=== PATIENT | male | born 1975 | race African-American/Black ===

== ENCOUNTER 2019-07-11 18:01 | Emergency (ER) | payer MEDICAID ==
[~2019-07-11] VITALS: Ht 182.9 cm; Wt 127.0 kg
[2019-07-11] MEDS ORDERED: ONDANSETRON HCL 4MG/2ML INJ IV STA (18:50)
[2019-07-11] MEDS ORDERED: MECLIZINE 25MG TABLET PO ONE (19:00)
[2019-07-11] MEDS ORDERED: HYDRALAZINE 20MG/ML VIAL IV ONE (19:00)
[2019-07-11 19:58] LABS: BASOPHILS % 0.5 % (0.0-2.0); HEMATOCRIT. 49.2 % (42.0-52.0); HEMOGLOBIN. 16.1 g/dL (14.0-18.0); LYMPHOCYTES % 10.2 % (20.0-50.0); MEAN CORPUSCULAR HEMOGLOBIN 27.6 pg (28.0-32.0); MEAN CORPUSCULAR VOLUME 84.3 fL (80.0-94.0); MEAN PLATELET VOLUME 9.3 fl (7.4-10.4); MONOCYTES % 2.9 % (2.0-8.0); NEUTROPHILS % 86.4 % (40.0-76.0); PLATELET 237 x1000/uL (130-400); RED BLOOD CELL COUNT 5.84 mill/uL (4.7-6.1); RED CELL DISTRIBUTION WIDTH 14.9 % (11.6-14.6)
[2019-07-11 19:59] LABS: CLARITY URINE CLEAR (CLEAR); COLOR URINE YELLOW (YELLOW); KETONES URINE 1+ (NEGATIVE); LEUKOCYTE ESTERASE URINE NEGATIVE (NEGATIVE); NITRITE URINE NEGATIVE (NEGATIVE); OCCULT BLOOD URINE NEGATIVE (NEGATIVE); PH URINE 8.5 (4.5-8.0); PROTEIN URINE NEGATIVE (NEGATIVE); SPECIFIC GRAVITY URINE 1.014 (1.005-1.030); UROBILINOGEN URINE 0.2 E.U./dL (0.2-1.0)
[2019-07-11 20:04] LABS: CHLORIDE 104 mEq/L (98-107)
[2019-07-11 21:27] VITALS: BP 180/90
== END 2019-07-11 21:55 | disposition home or self-care (01) ==
LOC: ER 18:01
DX: R42 Dizziness and giddiness (principal); R11.0 Nausea; I10 Essential (primary) hypertension
CPT/HCPCS: 36415; 70450; 71045; 80053; 81003; 83880; 84484; 85025; 93005; 96374; 99284; J2405; J8597

== ENCOUNTER 2022-06-02 20:10 | Inpatient (IN) | payer MEDICAID ==
[~2022-06-02] VITALS: Ht 182.9 cm; Wt 185.1 kg
[2022-06-03] MEDS ORDERED: FUROSEMIDE 40MG/4ML VIAL IV ONE (04:00)
[2022-06-03 04:47] LABS: BASOPHILS % 1.2 % (0.0-2.0); EOSINOPHILS % 0.4 % (0.0-5.0); HEMATOCRIT. 50.2 % (42.0-52.0); HEMOGLOBIN. 15.2 g/dL (14.0-18.0); LYMPHOCYTES % 23.6 % (20.0-50.0); MEAN CORPUSCULAR HEMOGLOBIN 23.3 pg (28.0-32.0); MEAN PLATELET VOLUME 8.9 fl (7.4-10.4); NEUTROPHILS % 64.8 % (40.0-76.0); PLATELET 265 x1000/uL (130-400); RED BLOOD CELL COUNT 6.53 mill/uL (4.7-6.1); RED CELL DISTRIBUTION WIDTH 19.1 % (11.6-14.6)
[2022-06-03 04:48] LABS: CHLORIDE 101 mEq/L (98-107)
[2022-06-03] MEDS ORDERED: FUROSEMIDE 40MG/4ML VIAL IV NR (06:15)
[2022-06-03] MEDS ORDERED: FUROSEMIDE 40MG/4ML VIAL IVP ONE (06:45)
[2022-06-03] MEDS ORDERED: ACETAMINOPHEN 325MG TABLET PO PRN ×2 (09:45)
[2022-06-03] MEDS ORDERED: ONDANSETRON HCL 4MG/2ML INJ IV PRN (09:45)
[2022-06-03] MEDS ORDERED: KETOROLAC 15MG/ML VIAL IV PRN (09:45)
[2022-06-03] MEDS ORDERED: DOCUSATE SODIUM 100MG CAPSULE PO PRN (09:45)
[2022-06-03] MEDS ORDERED: IPRATROPIUM/ALBUTEROL 0.5-3(2.5)MG/3ML NEB NEB PRN (09:45)
[2022-06-03] MEDS ORDERED: CLONIDINE 0.1MG TABLET PO PRN (09:45)
[2022-06-03] MEDS ORDERED: GUAIFENESIN 200MG/10ML SUGAR FREE UDC PO PRN (09:45)
[2022-06-03] MEDS ORDERED: NA PHOS,M-B/NA PHOS,DI-BA ENEMA 118ML PR PRN (09:45)
[2022-06-03] MEDS ORDERED: NITROGLYCERIN 0.4MG TABLET SL SL PRN (09:45)
[2022-06-03] MEDS ORDERED: FUROSEMIDE 40MG/4ML VIAL IVP NR (09:45)
[2022-06-03] MEDS ORDERED: MAGNESIUM/ALUMINUM HYDROXIDE/SIMETHICONE 30ML UDC PO PRN (09:45)
[2022-06-03] MEDS ORDERED: ASPIRIN 325MG EC TABLET PO SCH (10:00)
[2022-06-03 10:53] VITALS: BP 149/85
[2022-06-03 11:00] VITALS: BP 149/85
[2022-06-03] MEDS: FUROSEMIDE 40MG/4ML VIAL IVP SCH ×2 (11:08→18:10)
[2022-06-03] MEDS: FAMOTIDINE 20MG TABLET PO SCH ×2 (11:09→21:00)
[2022-06-03] MEDS: ENOXAPARIN 40MG/0.4ML SYR SUBCUT SCH ×2 (11:10→21:02)
[2022-06-03] MEDS: SPIRONOLACTONE 25MG TABLET PO SCH ×2 (11:10→21:01)
[2022-06-03 11:25] LABS: ETHANOL BLOOD < 10 mg/dL; HDL CHOLESTEROL 27 mg/dL (40-59); LDL CHOLESTEROL 55 mg/dL (5-100); TOTAL IRON BINDING CAPACITY 458 ug/dL (250-450)
[2022-06-03 12:07] VITALS: BP 139/85
[2022-06-03] MEDS ORDERED: AMLO5TAB88 PO (12:18)
[2022-06-03] MEDS ORDERED: LISI-186 PO (12:18)
[2022-06-03] MEDS ORDERED: EMPA25TA PO (12:18)
[2022-06-03] MEDS ORDERED: METF-414 PO (12:18)
[2022-06-03] MEDS ORDERED: ATOR-2 PO (12:18)
[2022-06-03] MEDS ORDERED: ALBU6.7H3 INH (12:18)
[2022-06-03 16:00] VITALS: BP 156/79
[2022-06-03 18:06] LABS: CREATINE KINASE MB FRACTION 1.6 ng/mL (0.5-3.6)
[2022-06-03 18:25] LABS: VITAMIN B12 SERUM 722 pg/mL (211-911)
[2022-06-03 20:00] VITALS: BP 163/99
[2022-06-03] MEDS ORDERED: ZOLPIDEM TARTRATE 5MG TABLET PO PRN (21:00)
[2022-06-04] VITALS: BP 153/108
[2022-06-04 00:42] LABS: *AMPHETAMINES SCREEN URINE NEGATIVE (NEGATIVE); *BARBITURATES SCREEN URINE NEGATIVE (NEGATIVE); *BENZODIAZEPINES SCREEN URINE NEGATIVE (NEGATIVE); *COCAINE SCREEN URINE NEGATIVE (NEGATIVE); CANNABINOID URINE SCREEN NEGATIVE (NEGATIVE); METHADONE URINE SCREEN NEGATIVE (NEGATIVE); OPIATES URINE SCREEN NEGATIVE (NEGATIVE); PHENCYCLIDINE URINE SCREEN NEGATIVE (NEGATIVE)
[2022-06-04 01:17] LABS: CLARITY URINE CLEAR (CLEAR); COLOR URINE YELLOW (YELLOW); PROTEIN URINE NEGATIVE (NEGATIVE)
[2022-06-04 01:18] LABS: KETONES URINE NEGATIVE (NEGATIVE); LEUKOCYTE ESTERASE URINE NEGATIVE (NEGATIVE); NITRITE URINE NEGATIVE (NEGATIVE); OCCULT BLOOD URINE TRACE (NEGATIVE); UROBILINOGEN URINE 0.2 E.U./dL (0.2-1.0)
[2022-06-04] MEDS: METOPROLOL SUCCINATE 50MG ER TABLET PO SCH ×3 (01:40→21:00)
[2022-06-04 03:40] LABS: CREATINE KINASE MB FRACTION 1.1 ng/mL (0.5-3.6)
[2022-06-04 04:00] VITALS: BP 111/76
[2022-06-04] MEDS: FUROSEMIDE 40MG/4ML VIAL IVP SCH ×2 (06:14→17:07)
[2022-06-04 08:00] VITALS: BP 132/90
[2022-06-04] MEDS: FAMOTIDINE 20MG TABLET PO SCH ×2 (09:50→21:30)
[2022-06-04] MEDS: ENOXAPARIN 40MG/0.4ML SYR SUBCUT SCH ×2 (09:50→21:30)
[2022-06-04] MEDS: SPIRONOLACTONE 25MG TABLET PO SCH ×2 (09:50→21:32)
[2022-06-04] MEDS: ASPIRIN 81MG EC TABLET PO SCH (09:51)
[2022-06-04 10:41] LABS: BASOPHILS % 0.5 % (0.0-2.0); EOSINOPHILS % 0.1 % (0.0-5.0); HEMATOCRIT. 55.7 % (42.0-52.0); HEMOGLOBIN. 16.3 g/dL (14.0-18.0); LYMPHOCYTES % 11.5 % (20.0-50.0); MEAN CORPUSCULAR VOLUME 78.6 fL (80.0-94.0); MEAN PLATELET VOLUME 9.1 fl (7.4-10.4); MONOCYTES % 10.2 % (2.0-8.0); NEUTROPHILS % 77.7 % (40.0-76.0); PLATELET 249 x1000/uL (130-400); RED BLOOD CELL COUNT 7.08 mill/uL (4.7-6.1); RED CELL DISTRIBUTION WIDTH 19.3 % (11.6-14.6)
[2022-06-04 11:09] LABS: PHOSPHORUS 4.7 mg/dL (2.5-4.9)
[2022-06-04] MEDS ORDERED: TAMS-11 PO (11:11)
[2022-06-04] MEDS ORDERED: FURO40TA5 PO (11:11)
[2022-06-04] MEDS ORDERED: GUAI-741 MT (11:11)
[2022-06-04] MEDS ORDERED: ASPI-1497 PO (11:11)
[2022-06-04] MEDS ORDERED: CARV6.2548 PO (11:11)
[2022-06-04 12:00] VITALS: BP 125/82
[2022-06-04 16:00] VITALS: BP 114/18
[2022-06-04 20:00] VITALS: BP 96/54
[2022-06-04] MEDS: ATORVASTATIN CALCIUM 40MG TABLET PO SCH (21:30)
[2022-06-05] VITALS: BP 147/78
[2022-06-05 04:00] VITALS: BP 115/79
[2022-06-05] MEDS: FUROSEMIDE 40MG/4ML VIAL IVP SCH ×2 (06:23→16:25)
[2022-06-05 08:04] VITALS: BP 113/69
[2022-06-05] MEDS: AMLODIPINE 5MG TABLET PO SCH (08:45)
[2022-06-05] MEDS: METOPROLOL SUCCINATE 50MG ER TABLET PO SCH ×2 (08:45→20:21)
[2022-06-05] MEDS: ASPIRIN 81MG EC TABLET PO SCH (08:45)
[2022-06-05] MEDS: SPIRONOLACTONE 25MG TABLET PO SCH ×2 (08:45→20:20)
[2022-06-05] MEDS: FAMOTIDINE 20MG TABLET PO SCH ×2 (08:45→20:22)
[2022-06-05] MEDS: ENOXAPARIN 40MG/0.4ML SYR SUBCUT SCH ×2 (08:46→20:20)
[2022-06-05 09:11] LABS: CHLORIDE 95 mEq/L (98-107)
[2022-06-05 12:00] VITALS: BP 124/85
[2022-06-05 15:00] LABS: BG BASE EXCESS 15.1 mmol/L (-2.0-2.0); BG CARBOXYHEMOGLOBIN 2.5 % (0.5-1.5); BG DEOXYHEMOGLOBIN 7.7 % (0.0-5.0); BG FRACTION INSPIRED OXYGEN 36; BG HCO3 ACT 46.6 mmol/L (22.0-26.0); BG METHEMOGLOBIN 0.3 % (0.0-1.5); BG OXYGEN SATURATION 92.1 % (92.0-98.5); BG OXYHEMOGLOBIN 89.5 % (94.0-97.0); BG PCO2 94.6 mmHg (35.0-45.0); BG PO2 68.2 mmHg (75.0-100.0); BG SAMPLE SITE RIGHT BRACHIAL; BG TOTAL HEMOGLOBIN 15.1 g/dL (12.0-18.0); BG VENT MODE NASAL CANNULA
[2022-06-05 16:00] VITALS: BP 128/86
[2022-06-05 19:05] LABS: CLARITY URINE CLEAR (CLEAR); COLOR URINE YELLOW (YELLOW); KETONES URINE NEGATIVE (NEGATIVE); LEUKOCYTE ESTERASE URINE TRACE (NEGATIVE); NITRITE URINE NEGATIVE (NEGATIVE); OCCULT BLOOD URINE 3+ (NEGATIVE); PROTEIN URINE NEGATIVE (NEGATIVE); SPECIFIC GRAVITY URINE 1.015 (1.005-1.030); UROBILINOGEN URINE 0.2 E.U./dL (0.2-1.0)
[2022-06-05 20:00] VITALS: BP 122/73
[2022-06-05] MEDS: ATORVASTATIN CALCIUM 40MG TABLET PO SCH (20:22)
[2022-06-06] VITALS: BP 112/75
[2022-06-06 04:00] VITALS: BP 106/77
[2022-06-06] MEDS: FUROSEMIDE 40MG/4ML VIAL IVP SCH ×2 (06:19→17:22)
[2022-06-06 08:00] VITALS: BP 107/63
[2022-06-06] MEDS: AMLODIPINE 5MG TABLET PO SCH (08:37)
[2022-06-06] MEDS: SPIRONOLACTONE 25MG TABLET PO SCH ×2 (09:36→21:09)
[2022-06-06] MEDS: ENOXAPARIN 40MG/0.4ML SYR SUBCUT SCH ×2 (09:37→21:09)
[2022-06-06] MEDS: METOPROLOL SUCCINATE 50MG ER TABLET PO SCH ×2 (09:37→21:10)
[2022-06-06] MEDS: ASPIRIN 81MG EC TABLET PO SCH (09:37)
[2022-06-06] MEDS: FAMOTIDINE 20MG TABLET PO SCH ×2 (09:37→21:09)
[2022-06-06 12:00] VITALS: BP 115/74
[2022-06-06 16:00] VITALS: BP 157/84
[2022-06-06 20:00] VITALS: BP 120/71
[2022-06-06] MEDS: ATORVASTATIN CALCIUM 40MG TABLET PO SCH (21:09)
[2022-06-07] VITALS: BP 127/81
[2022-06-07 04:00] VITALS: BP 123/73
[2022-06-07] MEDS: FUROSEMIDE 40MG/4ML VIAL IVP SCH ×2 (06:35→17:50)
[2022-06-07 08:00] VITALS: BP 116/74
[2022-06-07] MEDS: ASPIRIN 81MG EC TABLET PO SCH (08:54)
[2022-06-07] MEDS: ENOXAPARIN 40MG/0.4ML SYR SUBCUT SCH ×2 (08:54→21:40)
[2022-06-07] MEDS: FAMOTIDINE 20MG TABLET PO SCH ×2 (08:54→21:39)
[2022-06-07] MEDS: AMLODIPINE 5MG TABLET PO SCH (08:54)
[2022-06-07] MEDS: METOPROLOL SUCCINATE 50MG ER TABLET PO SCH ×2 (08:54→21:39)
[2022-06-07] MEDS: SPIRONOLACTONE 25MG TABLET PO SCH (08:56)
[2022-06-07 12:00] VITALS: BP 108/80
[2022-06-07 13:48] LABS: CHLORIDE 91 mEq/L (98-107)
[2022-06-07 15:40] LABS: BG BASE EXCESS 18.3 mmol/L (-2.0-2.0); BG CARBOXYHEMOGLOBIN 2.4 % (0.5-1.5); BG DEOXYHEMOGLOBIN 11.4 % (0.0-5.0); BG FRACTION INSPIRED OXYGEN 32; BG HCO3 ACT 49.3 mmol/L (22.0-26.0); BG METHEMOGLOBIN 0.3 % (0.0-1.5); BG OXYGEN SATURATION 88.3 % (92.0-98.5); BG OXYHEMOGLOBIN 85.9 % (94.0-97.0); BG PCO2 90.3 mmHg (35.0-45.0); BG PH 7.355 (7.350-7.450); BG PO2 56.9 mmHg (75.0-100.0); BG SAMPLE SITE RIGHT BRACHIAL; BG TOTAL HEMOGLOBIN 15.1 g/dL (12.0-18.0); BG VENT MODE NASAL CANNULA
[2022-06-07 16:00] VITALS: BP 127/80
[2022-06-07 20:00] VITALS: BP 126/79
[2022-06-07] MEDS: ATORVASTATIN CALCIUM 40MG TABLET PO SCH (21:39)
[2022-06-08] VITALS: BP 136/89
[2022-06-08 04:00] VITALS: BP 141/93
[2022-06-08] MEDS: FUROSEMIDE 40MG/4ML VIAL IVP SCH ×2 (06:12→17:21)
[2022-06-08 06:54] LABS: HEMATOCRIT 48.2 % (42.0-52.0); HEMOGLOBIN 14.4 g/dL (14.0-18.0); MEAN CORPUSCULAR HEMOGLOBIN 23.2 pg (28.0-32.0); MEAN CORPUSCULAR VOLUME 77.6 fL (80.0-94.0); PLATELET 168 x1000/uL (130-400); RED BLOOD CELL COUNT 6.21 mill/uL (4.7-6.1); RED CELL DISTRIBUTION WIDTH 18.8 % (11.6-14.6)
[2022-06-08 08:00] VITALS: BP 152/92
[2022-06-08 08:34] LABS: CHLORIDE 90 mEq/L (98-107)
[2022-06-08 08:41] LABS: PHOSPHORUS 3.5 mg/dL (2.5-4.9)
[2022-06-08] MEDS: AMLODIPINE 5MG TABLET PO SCH (09:42)
[2022-06-08] MEDS: FAMOTIDINE 20MG TABLET PO SCH ×2 (09:42→21:27)
[2022-06-08] MEDS: SPIRONOLACTONE 25MG TABLET PO SCH (09:42)
[2022-06-08] MEDS: ASPIRIN 81MG EC TABLET PO SCH (09:42)
[2022-06-08] MEDS: METOPROLOL SUCCINATE 50MG ER TABLET PO SCH ×2 (09:43→21:28)
[2022-06-08] MEDS: ENOXAPARIN 40MG/0.4ML SYR SUBCUT SCH ×2 (09:43→21:27)
[2022-06-08 12:00] VITALS: BP 101/62
[2022-06-08 16:00] VITALS: BP 124/72
[2022-06-08] MEDS ORDERED: MAGNESIUM 2 G PREMIX 50 ML IV NR (18:00)
[2022-06-08] MEDS ORDERED: ACETAZOLAMIDE 500MG ER CAPSULE PO NR ×2 (18:30→20:30)
[2022-06-08 20:00] VITALS: BP 111/61
[2022-06-08] MEDS: ATORVASTATIN CALCIUM 40MG TABLET PO SCH (21:27)
[2022-06-09] VITALS: BP 123/80
[2022-06-09 04:00] VITALS: BP 133/79
[2022-06-09] MEDS: FUROSEMIDE 40MG/4ML VIAL IVP SCH ×2 (06:49→16:25)
[2022-06-09 07:24] LABS: CHLORIDE 91 mEq/L (98-107)
[2022-06-09 07:36] LABS: HEMATOCRIT 51.5 % (42.0-52.0); HEMOGLOBIN 15.4 g/dL (14.0-18.0); MEAN CORPUSCULAR HEMOGLOBIN 23.4 pg (28.0-32.0); MEAN CORPUSCULAR VOLUME 78.3 fL (80.0-94.0); PLATELET 163 x1000/uL (130-400); RED BLOOD CELL COUNT 6.58 mill/uL (4.7-6.1); RED CELL DISTRIBUTION WIDTH 19.2 % (11.6-14.6)
[2022-06-09 07:37] LABS: PHOSPHORUS 3.9 mg/dL (2.5-4.9)
[2022-06-09 08:00] VITALS: BP 155/106
[2022-06-09 09:16] LABS: BG BASE EXCESS 17.6 mmol/L (-2.0-2.0); BG CARBOXYHEMOGLOBIN 2.4 % (0.5-1.5); BG DEOXYHEMOGLOBIN 6.3 % (0.0-5.0); BG FRACTION INSPIRED OXYGEN 36; BG HCO3 ACT 49.9 mmol/L (22.0-26.0); BG METHEMOGLOBIN 0.3 % (0.0-1.5); BG OXYGEN SATURATION 93.5 % (92.0-98.5); BG PCO2 97.5 mmHg (35.0-45.0); BG PH 7.327 (7.350-7.450); BG PO2 70.8 mmHg (75.0-100.0); BG SAMPLE SITE RIGHT RADIAL; BG TOTAL HEMOGLOBIN 16.3 g/dL (12.0-18.0); BG VENT MODE NASAL CANNULA
[2022-06-09] MEDS: ASPIRIN 81MG EC TABLET PO SCH (09:48)
[2022-06-09] MEDS: SPIRONOLACTONE 25MG TABLET PO SCH (09:48)
[2022-06-09] MEDS: FAMOTIDINE 20MG TABLET PO SCH ×2 (09:48→21:55)
[2022-06-09] MEDS: ENOXAPARIN 40MG/0.4ML SYR SUBCUT SCH ×2 (09:48→21:58)
[2022-06-09] MEDS: AMLODIPINE 5MG TABLET PO SCH (09:49)
[2022-06-09] MEDS: METOPROLOL SUCCINATE 50MG ER TABLET PO SCH ×2 (09:49→21:56)
[2022-06-09 12:00] VITALS: BP 111/67
[2022-06-09 16:00] VITALS: BP 139/91
[2022-06-09 20:00] VITALS: BP 110/72
[2022-06-09] MEDS: ATORVASTATIN CALCIUM 40MG TABLET PO SCH (21:56)
[2022-06-10] VITALS: BP 120/75
[2022-06-10 04:00] VITALS: BP 115/72
[2022-06-10 07:15] LABS: HEMATOCRIT 53.8 % (42.0-52.0); HEMOGLOBIN 15.8 g/dL (14.0-18.0); MEAN CORPUSCULAR HEMOGLOBIN 23.4 pg (28.0-32.0); MEAN CORPUSCULAR VOLUME 79.3 fL (80.0-94.0); PLATELET 133 x1000/uL (130-400); RED BLOOD CELL COUNT 6.78 mill/uL (4.7-6.1); RED CELL DISTRIBUTION WIDTH 19.5 % (11.6-14.6)
[2022-06-10 08:29] VITALS: BP 154/75
[2022-06-10 09:00] LABS: CHLORIDE 95 mEq/L (98-107)
[2022-06-10] MEDS: ENOXAPARIN 40MG/0.4ML SYR SUBCUT SCH ×2 (09:15→21:44)
[2022-06-10] MEDS: FAMOTIDINE 20MG TABLET PO SCH ×2 (09:15→21:45)
[2022-06-10] MEDS: FUROSEMIDE 40MG/4ML VIAL IVP SCH ×2 (09:16→19:12)
[2022-06-10] MEDS: AMLODIPINE 5MG TABLET PO SCH (09:16)
[2022-06-10] MEDS: METOPROLOL SUCCINATE 50MG ER TABLET PO SCH ×2 (09:16→21:45)
[2022-06-10] MEDS: ASPIRIN 81MG EC TABLET PO SCH (09:16)
[2022-06-10] MEDS: SPIRONOLACTONE 25MG TABLET PO SCH (09:16)
[2022-06-10 12:00] VITALS: BP 102/55
[2022-06-10 16:00] VITALS: BP 115/67
[2022-06-10 20:00] VITALS: BP 12/72
[2022-06-10] MEDS ORDERED: FURO40TA5 PO (20:35)
[2022-06-10] MEDS ORDERED: LISI-186 PO (20:35)
[2022-06-10] MEDS ORDERED: METF-414 PO (20:36)
[2022-06-10] MEDS ORDERED: COR6 PO (20:37)
[2022-06-10] MEDS ORDERED: TAMS-11 PO (20:37)
[2022-06-10] MEDS ORDERED: EMPA25TA PO (20:38)
[2022-06-10] MEDS ORDERED: ATOR-2 PO (20:39)
[2022-06-10] MEDS ORDERED: ASPI-1497 PO (20:39)
[2022-06-10] MEDS ORDERED: PRIL20 PO (20:41)
[2022-06-10] MEDS: ATORVASTATIN CALCIUM 40MG TABLET PO SCH (21:45)
[2022-06-11] VITALS (8 sets, daily range): BP systolic 108–132; BP diastolic 60–87
[2022-06-11] MEDS: METOPROLOL SUCCINATE 50MG ER TABLET PO SCH (09:00)
[2022-06-11] MEDS: AMLODIPINE 5MG TABLET PO SCH (09:00)
[2022-06-11] MEDS: ASPIRIN 81MG EC TABLET PO SCH (09:08)
[2022-06-11] MEDS: FUROSEMIDE 40MG/4ML VIAL IVP SCH ×2 (09:08→18:10)
[2022-06-11] MEDS: ENOXAPARIN 40MG/0.4ML SYR SUBCUT SCH (09:08)
[2022-06-11] MEDS: FAMOTIDINE 20MG TABLET PO SCH (09:09)
[2022-06-11 11:27] LABS: HEMATOCRIT 53.9 % (42.0-52.0); HEMOGLOBIN 16.4 g/dL (14.0-18.0); MEAN CORPUSCULAR HEMOGLOBIN 23.8 pg (28.0-32.0); MEAN CORPUSCULAR VOLUME 78.4 fL (80.0-94.0); PLATELET 109 x1000/uL (130-400); RED BLOOD CELL COUNT 6.88 mill/uL (4.7-6.1); RED CELL DISTRIBUTION WIDTH 19.2 % (11.6-14.6)
[2022-06-11] MEDS: SPIRONOLACTONE 25MG TABLET PO SCH (11:29)
[2022-06-11 12:27] LABS: CHLORIDE 94 mEq/L (98-107)
== END 2022-06-11 20:05 | DRG 194 ==
LOC: ER 20:10 → 6WST 06-03 07:36 → ENRESERV 06-03 08:29
PROVIDERS: ADMIT Internal Medicine; ATTEND Internal Medicine
PROC: 5A09357 Assistance with Respiratory Ventilation, Less than 24 Consecutive Hours, Continuous Positive Airway Pressure (ICD-10-PCS; principal; 2022-06-06)
DX: I11.0 Hypertensive heart disease with heart failure (principal); N17.0 Acute kidney failure with tubular necrosis; G93.40 Encephalopathy, unspecified; J96.02 Acute respiratory failure with hypercapnia; J96.01 Acute respiratory failure with hypoxia; D69.6 Thrombocytopenia, unspecified; E11.52 Type 2 diabetes mellitus with diabetic peripheral angiopathy with gangrene; I96 Gangrene, not elsewhere classified; R18.8 Other ascites; I21.A1 Myocardial infarction type 2; I50.33 Acute on chronic diastolic (congestive) heart failure; I27.20 Pulmonary hypertension, unspecified; E66.2 Morbid (severe) obesity with alveolar hypoventilation; E87.1 Hypo-osmolality and hyponatremia; E87.4 Mixed disorder of acid-base balance; G82.20 Paraplegia, unspecified; E11.65 Type 2 diabetes mellitus with hyperglycemia; E78.00 Pure hypercholesterolemia, unspecified; R26.9 Unspecified abnormalities of gait and mobility; E11.42 Type 2 diabetes mellitus with diabetic polyneuropathy; D64.9 Anemia, unspecified; I07.1 Rheumatic tricuspid insufficiency; J44.9 Chronic obstructive pulmonary disease, unspecified; K43.9 Ventral hernia without obstruction or gangrene; M48.061 Spinal stenosis, lumbar region without neurogenic claudication; Z60.2 Problems related to living alone; M51.36 Other intervertebral disc degeneration, lumbar region; M51.37 Other intervertebral disc degeneration, lumbosacral region; Z68.43 Body mass index [BMI] 50.0-59.9, adult; Z79.82 Long term (current) use of aspirin; Z79.84 Long term (current) use of oral hypoglycemic drugs; Z79.899 Other long term (current) drug therapy; Z86.16 Personal history of COVID-19; Z91.14 Patient's other noncompliance with medication regimen; Z82.49 Family history of ischemic heart disease and other diseases of the circulatory system
CPT/HCPCS: 36415; 36600; 71045; 72131; 74176; 80048; 80053; 80061; 80305; 80320; 81003; 82375; 82550; 82553; 82607; 82746; 82805; 82962; 83036; 83540; 83550; 83605; 83735; 83880; 84100; 84439; 84443; 84484; 85025; 85027; 93005; 93306; 93970; 94660; 97116; 97162; 97166; 97535; 99285; A6261; J1650; J1940; J3475; A4315; G0480

== ENCOUNTER 2022-06-11 20:10 | Inpatient (IN) | payer MEDICAID ==
[~2022-06-11] VITALS: Ht 180.3 cm; Wt 185.1 kg
[~2022-06-11 20:10] MED LIST: ALBU6.7H3 INH; ASPI-1497 PO; ATOR-2 PO; COR6 PO; EMPA25TA PO; FURO40TA5 PO; GUAI-741 MT; LISI-186 PO; METF-414 PO; PRIL20 PO; TAMS-11 PO
[2022-06-11 20:30] VITALS: BP 133/78
[2022-06-11] MEDS ORDERED: DOCUSATE SODIUM 100MG CAPSULE PO PRN (21:15)
[2022-06-11] MEDS ORDERED: IPRATROPIUM/ALBUTEROL 0.5-3(2.5)MG/3ML NEB HHN PRN (21:15)
[2022-06-11] MEDS ORDERED: MAGNESIUM/ALUMINUM HYDROXIDE/SIMETHICONE 30ML UDC PO PRN (21:15)
[2022-06-11] MEDS ORDERED: NA PHOS,M-B/NA PHOS,DI-BA ENEMA 118ML PR PRN (21:15)
[2022-06-11] MEDS ORDERED: NITROGLYCERIN 0.4MG TABLET SL SL PRN (21:15)
[2022-06-11] MEDS ORDERED: ONDANSETRON HCL 4MG/2ML INJ IV PRN (21:15)
[2022-06-11] MEDS ORDERED: ACETAMINOPHEN 325MG TABLET PO PRN ×2 (21:15)
[2022-06-11] MEDS ORDERED: GUAIFENESIN 200MG/10ML SUGAR FREE UDC PO PRN (21:15)
[2022-06-11] MEDS ORDERED: CLONIDINE 0.1MG TABLET PO PRN (21:15)
[2022-06-11] MEDS ORDERED: METOPROLOL SUCCINATE 50MG ER TABLET PO SCH (22:00)
[2022-06-11] MEDS: ATORVASTATIN CALCIUM 40MG TABLET PO SCH (22:48)
[2022-06-11] MEDS: METOPROLOL TARTRATE 25MG TABLET PO SCH (22:48)
[2022-06-11] MEDS: FAMOTIDINE 20MG TABLET PO SCH (22:48)
[2022-06-11] MEDS: ENOXAPARIN 40MG/0.4ML SYR SUBCUT SCH (22:49)
[2022-06-12] MEDS: FUROSEMIDE 40MG/4ML VIAL IVP SCH ×2 (06:25→18:33)
[2022-06-12 08:00] VITALS: BP 126/73
[2022-06-12] MEDS: FAMOTIDINE 20MG TABLET PO SCH ×2 (09:54→21:40)
[2022-06-12] MEDS: ASPIRIN 81MG EC TABLET PO SCH (09:54)
[2022-06-12] MEDS: AMLODIPINE 5MG TABLET PO SCH (09:54)
[2022-06-12] MEDS: SPIRONOLACTONE 25MG TABLET PO SCH (09:55)
[2022-06-12] MEDS: METOPROLOL TARTRATE 25MG TABLET PO SCH ×2 (09:55→21:40)
[2022-06-12] MEDS: ENOXAPARIN 40MG/0.4ML SYR SUBCUT SCH ×2 (09:57→21:41)
[2022-06-12 13:09] LABS: EOSINOPHILS % 1.7 % (0.0-5.0); HEMATOCRIT. 52.2 % (42.0-52.0); HEMOGLOBIN. 15.8 g/dL (14.0-18.0); LYMPHOCYTES % 30.9 % (20.0-50.0); MEAN CORPUSCULAR HEMOGLOBIN 23.7 pg (28.0-32.0); MEAN CORPUSCULAR VOLUME 78.5 fL (80.0-94.0); MEAN PLATELET VOLUME 8.8 fl (7.4-10.4); MONOCYTES % 13.2 % (2.0-8.0); NEUTROPHILS % 53.2 % (40.0-76.0); PLATELET 96 x1000/uL (130-400); RED BLOOD CELL COUNT 6.65 mill/uL (4.7-6.1); RED CELL DISTRIBUTION WIDTH 19.3 % (11.6-14.6)
[2022-06-12 13:16] LABS: CHLORIDE 96 mEq/L (98-107)
[2022-06-12 19:52] VITALS: BP 138/83
[2022-06-12] MEDS: ATORVASTATIN CALCIUM 40MG TABLET PO SCH (21:40)
[2022-06-13] MEDS: FUROSEMIDE 40MG/4ML VIAL IVP SCH ×2 (06:17→18:13)
[2022-06-13 06:29] LABS: BASOPHILS % 0.7 % (0.0-2.0); EOSINOPHILS % 1.7 % (0.0-5.0); HEMATOCRIT. 50.9 % (42.0-52.0); HEMOGLOBIN. 15.6 g/dL (14.0-18.0); LYMPHOCYTES % 35.5 % (20.0-50.0); MEAN CORPUSCULAR HEMOGLOBIN 23.3 pg (28.0-32.0); MEAN CORPUSCULAR VOLUME 76.1 fL (80.0-94.0); MONOCYTES % 11.2 % (2.0-8.0); NEUTROPHILS % 50.9 % (40.0-76.0); RED BLOOD CELL COUNT 6.69 mill/uL (4.7-6.1); RED CELL DISTRIBUTION WIDTH 19.2 % (11.6-14.6)
[2022-06-13 07:48] LABS: PLATELET 90 x1000/uL (130-400)
[2022-06-13 08:00] VITALS: BP 139/86
[2022-06-13 08:16] LABS: CHLORIDE 95 mEq/L (98-107)
[2022-06-13 08:29] LABS: TOTAL IRON BINDING CAPACITY 446 ug/dL (250-450)
[2022-06-13] MEDS: FAMOTIDINE 20MG TABLET PO SCH ×2 (08:49→21:18)
[2022-06-13] MEDS: AMLODIPINE 5MG TABLET PO SCH (08:49)
[2022-06-13] MEDS: ASPIRIN 81MG EC TABLET PO SCH (08:49)
[2022-06-13] MEDS: SPIRONOLACTONE 25MG TABLET PO SCH (08:50)
[2022-06-13] MEDS: METOPROLOL TARTRATE 25MG TABLET PO SCH ×2 (08:50→21:00)
[2022-06-13] MEDS: ENOXAPARIN 40MG/0.4ML SYR SUBCUT SCH ×2 (08:51→21:20)
[2022-06-13 20:00] VITALS: BP 138/78
[2022-06-13] MEDS: ATORVASTATIN CALCIUM 40MG TABLET PO SCH (21:19)
[2022-06-14] MEDS: FUROSEMIDE 40MG/4ML VIAL IVP SCH ×2 (06:39→17:01)
[2022-06-14 08:00] VITALS: BP 146/99
[2022-06-14] MEDS: ENOXAPARIN 40MG/0.4ML SYR SUBCUT SCH ×3 (09:00→21:45)
[2022-06-14] MEDS: ASPIRIN 81MG EC TABLET PO SCH (10:05)
[2022-06-14] MEDS: FAMOTIDINE 20MG TABLET PO SCH ×2 (10:05→21:46)
[2022-06-14] MEDS: METOPROLOL TARTRATE 25MG TABLET PO SCH ×2 (10:08→21:46)
[2022-06-14] MEDS: SPIRONOLACTONE 25MG TABLET PO SCH (10:08)
[2022-06-14] MEDS: AMLODIPINE 5MG TABLET PO SCH (10:08)
[2022-06-14 20:12] VITALS: BP 150/103
[2022-06-14] MEDS: ATORVASTATIN CALCIUM 40MG TABLET PO SCH (21:46)
[2022-06-15] MEDS: FUROSEMIDE 40MG/4ML VIAL IVP SCH ×2 (06:05→17:11)
[2022-06-15 07:29] LABS: HEMATOCRIT 52.9 % (42.0-52.0); HEMOGLOBIN 16.1 g/dL (14.0-18.0); MEAN CORPUSCULAR HEMOGLOBIN 23.5 pg (28.0-32.0); MEAN CORPUSCULAR VOLUME 77.1 fL (80.0-94.0); RED BLOOD CELL COUNT 6.86 mill/uL (4.7-6.1); RED CELL DISTRIBUTION WIDTH 19.8 % (11.6-14.6)
[2022-06-15 08:00] VITALS: BP 148/104
[2022-06-15] MEDS: ASPIRIN 81MG EC TABLET PO SCH (08:48)
[2022-06-15] MEDS: FAMOTIDINE 20MG TABLET PO SCH ×2 (08:49→21:13)
[2022-06-15] MEDS: SPIRONOLACTONE 25MG TABLET PO SCH (08:50)
[2022-06-15] MEDS: AMLODIPINE 5MG TABLET PO SCH (08:51)
[2022-06-15] MEDS: METOPROLOL TARTRATE 25MG TABLET PO SCH (08:51)
[2022-06-15] MEDS: ENOXAPARIN 40MG/0.4ML SYR SUBCUT SCH ×2 (09:36→21:14)
[2022-06-15 09:49] LABS: CHLORIDE 95 mEq/L (98-107)
[2022-06-15 14:23] LABS: PLATELET 86 x1000/uL (130-400)
[2022-06-15 20:00] VITALS: BP 145/100
[2022-06-15] MEDS: ATORVASTATIN CALCIUM 40MG TABLET PO SCH (21:13)
[2022-06-16] MEDS: FUROSEMIDE 40MG/4ML VIAL IVP SCH ×2 (06:11→17:45)
[2022-06-16 08:00] VITALS: BP 126/76
[2022-06-16] MEDS: ASPIRIN 81MG EC TABLET PO SCH (08:36)
[2022-06-16] MEDS: FAMOTIDINE 20MG TABLET PO SCH ×2 (08:36→21:34)
[2022-06-16] MEDS: AMLODIPINE 10MG TABLET PO SCH (08:36)
[2022-06-16] MEDS: SPIRONOLACTONE 25MG TABLET PO SCH (08:37)
[2022-06-16] MEDS: ENOXAPARIN 40MG/0.4ML SYR SUBCUT SCH ×2 (09:00→21:35)
[2022-06-16 20:00] VITALS: BP 135/83
[2022-06-16] MEDS: ATORVASTATIN CALCIUM 40MG TABLET PO SCH (21:34)
[2022-06-17] MEDS: FUROSEMIDE 40MG/4ML VIAL IVP SCH ×2 (06:37→16:37)
[2022-06-17 08:00] VITALS: BP 129/84
[2022-06-17] MEDS: ENOXAPARIN 40MG/0.4ML SYR SUBCUT SCH ×2 (09:11→21:00)
[2022-06-17] MEDS: ASPIRIN 81MG EC TABLET PO SCH (09:12)
[2022-06-17] MEDS: FAMOTIDINE 20MG TABLET PO SCH ×2 (09:12→21:24)
[2022-06-17] MEDS: SPIRONOLACTONE 25MG TABLET PO SCH (09:12)
[2022-06-17] MEDS: AMLODIPINE 10MG TABLET PO SCH (09:12)
[2022-06-17 20:00] VITALS: BP 128/77
[2022-06-17] MEDS: ATORVASTATIN CALCIUM 40MG TABLET PO SCH (21:24)
[2022-06-18] MEDS: FUROSEMIDE 40MG/4ML VIAL IVP SCH ×2 (06:24→17:00)
[2022-06-18 06:48] LABS: HEMATOCRIT. 51.4 % (42.0-52.0); HEMOGLOBIN. 15.9 g/dL (14.0-18.0); MEAN CORPUSCULAR HEMOGLOBIN 23.6 pg (28.0-32.0); MEAN CORPUSCULAR VOLUME 76.2 fL (80.0-94.0); RED BLOOD CELL COUNT 6.75 mill/uL (4.7-6.1); RED CELL DISTRIBUTION WIDTH 20.2 % (11.6-14.6)
[2022-06-18 08:00] VITALS: BP 125/83
[2022-06-18] MEDS: ASPIRIN 81MG EC TABLET PO SCH (08:48)
[2022-06-18] MEDS: AMLODIPINE 10MG TABLET PO SCH (08:48)
[2022-06-18] MEDS: FAMOTIDINE 20MG TABLET PO SCH ×2 (08:48→20:07)
[2022-06-18] MEDS: ENOXAPARIN 40MG/0.4ML SYR SUBCUT SCH ×4 (08:49→21:39)
[2022-06-18] MEDS: SPIRONOLACTONE 25MG TABLET PO SCH (09:00)
[2022-06-18 10:20] LABS: PLATELET ESTIMATE NORMAL
[2022-06-18 10:22] LABS: CHLORIDE 96 mEq/L (98-107)
[2022-06-18 10:25] LABS: PLATELET 136 x1000/uL (130-400)
[2022-06-18] MEDS ORDERED: FURO40TA5 PO (11:38)
[2022-06-18] MEDS ORDERED: SPIR25TA PO (11:38)
[2022-06-18] MEDS ORDERED: AMLO10TA80 PO (11:38)
[2022-06-18 20:00] VITALS: BP 109/57
[2022-06-18] MEDS: ATORVASTATIN CALCIUM 40MG TABLET PO SCH (20:07)
[2022-06-19] MEDS: FUROSEMIDE 40MG/4ML VIAL IVP SCH (06:43)
[2022-06-19 08:00] VITALS: BP 118/69
[2022-06-19] MEDS: ENOXAPARIN 40MG/0.4ML SYR SUBCUT SCH ×2 (09:00→09:23)
[2022-06-19] MEDS: FAMOTIDINE 20MG TABLET PO SCH (09:22)
[2022-06-19] MEDS: AMLODIPINE 10MG TABLET PO SCH (09:22)
[2022-06-19] MEDS: SPIRONOLACTONE 25MG TABLET PO SCH (09:22)
[2022-06-19] MEDS: ASPIRIN 81MG EC TABLET PO SCH (09:23)
[2022-06-19 10:42] VITALS: BP 21/118
[2022-06-19 19:06] LABS: 25-HYDROXY VITAMIN D3 8.8 ng/mL (.)
== END 2022-06-19 11:41 | disposition home health service (06) | DRG 190 ==
PROVIDERS: ADMIT Physical Medicine & Rehabilitation Spinal Cord Injury Medicine; ATTEND Internal Medicine
PROC: 5A09457 Assistance with Respiratory Ventilation, 24-96 Consecutive Hours, Continuous Positive Airway Pressure (ICD-10-PCS; 2022-06-11)
PROC: 5A09357 Assistance with Respiratory Ventilation, Less than 24 Consecutive Hours, Continuous Positive Airway Pressure (ICD-10-PCS; 2022-06-13)
PROC: 5A09357 Assistance with Respiratory Ventilation, Less than 24 Consecutive Hours, Continuous Positive Airway Pressure (ICD-10-PCS; 2022-06-15)
PROC: 5A09457 Assistance with Respiratory Ventilation, 24-96 Consecutive Hours, Continuous Positive Airway Pressure (ICD-10-PCS; principal; 2022-06-17)
DX: I21.4 Non-ST elevation (NSTEMI) myocardial infarction (principal); J96.21 Acute and chronic respiratory failure with hypoxia; I50.33 Acute on chronic diastolic (congestive) heart failure; E44.0 Moderate protein-calorie malnutrition; D69.6 Thrombocytopenia, unspecified; E66.2 Morbid (severe) obesity with alveolar hypoventilation; E83.51 Hypocalcemia; E87.3 Alkalosis; I27.29 Other secondary pulmonary hypertension; J96.22 Acute and chronic respiratory failure with hypercapnia; I50.82 Biventricular heart failure; M48.061 Spinal stenosis, lumbar region without neurogenic claudication; J44.9 Chronic obstructive pulmonary disease, unspecified; E78.00 Pure hypercholesterolemia, unspecified; G82.20 Paraplegia, unspecified; I36.1 Nonrheumatic tricuspid (valve) insufficiency; I11.0 Hypertensive heart disease with heart failure; Z82.49 Family history of ischemic heart disease and other diseases of the circulatory system; Z86.16 Personal history of COVID-19; Z68.43 Body mass index [BMI] 50.0-59.9, adult; Z87.09 Personal history of other diseases of the respiratory system; E11.42 Type 2 diabetes mellitus with diabetic polyneuropathy; R53.81 Other malaise; R26.9 Unspecified abnormalities of gait and mobility
CPT/HCPCS: 36415; 80048; 80053; 82306; 82728; 83540; 83550; 84484; 85025; 85027; 92523; 93005; 93970; 94660; 97110; 97112; 97116; 97162; 97166; 97530; 97535; J1650; J1940